=== PATIENT | male | born 1950 | race Caucasian/White ===

== ENCOUNTER 2024-07-20 10:41 | Day surgery (SDC) | payer MEDICARE ==
[2024-07-15 16:17] VITALS: BMI 23.1
--- NOTE | 2024-07-19 11:58 | P.GSHP ---
History of Present Illness H&P Date: 07/19/24 This 73-year-old gentleman diagnosed with a Edgar 7 prostate cancer, 4 of 12 cores in the left lobe of his prostate.. His PSA is elevated at 7.1. His prostate gland is 44 mL. He is to have external beam radiation therapy and comes for Space Oar injection by prior to his radiation treatment. - Constitutional Constitutional: Denies chills, Denies fever - EENT Eyes: denies blurred vision, denies pain Ears, nose, mouth and throat: Denies headache, Denies sore throat - Cardiovascular Cardiovascular: Denies chest pain, Denies shortness of breath - Respiratory Respiratory: Denies cough, Denies 7 - Gastrointestinal Gastrointestinal: Denies abdominal pain, Denies diarrhea, Denies nausea, Denies vomiting - Genitourinary (Female) Genitourinary: Denies dysuria, Denies hematuria - Genitourinary (Male) Genitourinary: Denies dysuria, Denies hematuria - Musculoskeletal Musculoskeletal: Denies myalgias - Integumentary Integumentary: Denies pruritus, Denies rash - Neurological Neurological: Denies numbness, Denies weakness - Psychiatric Psychiatric: Denies anxiety, Denies depression - Endocrine Endocrine: Denies fatigue, Denies weight change Past Medical History Past Medical History: Cancer, Hypertension Additional Past Medical History / Comment(s): prostate C-dx 2021 no radiation or chemo History of Any Multi-Drug Resistant Organisms: None Reported Past Surgical History: Tonsillectomy Additional Past Surgical History / Comment(s): martinez cyst removed, precancerous skin lesions removed, vasectomy Past Anesthesia/Blood Transfusion Reactions: No Reported Reaction Additional Past Anesthesia/Blood Transfusion Reaction / Comment(s): no hx blood transfuion Smoking Status: Never smoker - Past Family History Mother Family Medical History: Cancer Medications and Allergies Home Medications Medication Instructions Recorded Confirmed Type Aspirin 81 mg PO DAILY 03/14/15 07/15/24 History Bisoprolol-Hctz 2.5-6.25 mg [Ziac 1 each PO QAM 03/14/15 07/15/24 History 2.5-6.25] Fish Oil/Borage/Flax/Om3,6,9 1 400 mg PO DAILY 03/14/15 07/15/24 History [[place] 3-6-9 Complex Softgel] Ibuprofen [Motrin] 800 mg PO Q8HR PRN 03/14/15 07/15/24 History Allergies Allergy/AdvReac Type Severity Reaction Status Date / Time adhesive tape Allergy Rash/Hives Verified 07/15/24 16:09 Surgical - Exam - General well developed, well nourished, no distress - Eyes normal ocular movement, no icteric - ENT no hearing loss, no congestion - Neck no masses, trachea midline - Respiratory normal respiratory effort, clear to auscultation - Abdomen Abdomen: soft, non tender, no guarding, no rigid, no rebound - Integumentary no rash, no abnormal pigmentation - Neurologic no disoriented, no combative - Psychiatric oriented to time, oriented to person, oriented to place, speech is normal, memory intact Assessment and Plan Assessment: Impression: Prostate cancer, Edgar 7 (3+4) Recommendation: space oar injections prior to external beam radiation therapy.
[2024-07-20 11:55] VITALS: TEMP 97.4
[2024-07-20] MEDS: IV FLUID CONTINUATION 1,000 ML IV ONE (12:05)
[2024-07-20] MEDS: LACTATED RINGERS 1,000 ML IV SCH (12:05)
[2024-07-20] MEDS ORDERED: fentaNYL (PF) 50 MCG/ML 2 ML AMP ONE (12:33)
[2024-07-20] MEDS ORDERED: MIDAZOLAM 2 MG/2 ML VIAL ONE (12:33)
[2024-07-20] MEDS ORDERED: KETAMINE HCL IN 0.9 % NACL 50 MG/5 ML SYRINGE ONE (12:33)
[2024-07-20] MEDS ORDERED: PROPOFOL 10 MG/ML 20 ML VIAL IV ONE (12:33)
[2024-07-20] MEDS: LIDOCAINE 2% INJ 20 MG/ML SQ ONE ×2 (12:50)
--- NOTE | 2024-07-20 12:58 | P.OP ---
Date of Procedure: 07/20/24 Preoperative Diagnosis: Prostate cancer Postoperative Diagnosis: Same Procedure(s) Performed: SpaceOAR gel placement Implants: SpaceOAR gel Anesthesia: MAC Surgeon: Frank Reyes Estimated Blood Loss (ml): 5 Pathology: none sent Condition: stable Disposition: PACU Indications for Procedure: This 73-year-old gentleman diagnosed with a [place] 7 prostate cancer, 4 of 12 cores in the left lobe of his prostate.. His PSA is elevated at 7.1. His prostate gland is 44 mL. He is to have external beam radiation therapy and comes for Space Oar injection by prior to his radiation treatment. Description of Procedure: The patient was taken to the operating room and placed in the dorsolithotomy position, with his legs supported in Derick stirrups. The external genitalia was prepped and draped sterilely. The transrectal ultrasound probe was placed intrarectally. The prostate was imaged. The probe was then placed within the stabilizing stand. A spinal needle was advanced under ultrasonic guidance to the level of the urogenital diaphragm, and lidocaine was used to infiltrate the tissues as the needle was withdrawn. Next, the SpaceOAR needle was passed through the midline of the perineum, 1-2 cm anterior to the anal opening. The needle was slowly advanced under ultrasonic guidance until the needle tip was located within the fat plane between the prostate and rectum, at the level of the mid prostate gland. The needle was confirmed to be midline on the axial imaging. A small amount of normal saline was injected for hydrodissection. Next, the SpaceOAR components were mixed and loaded into the Y connector per protocol. The Y connector was then connected to the needle, and the components were injected slowly over a course of approximately 10 seconds. A total of 10 ml was injected. Significant distance was created between the prostate and rectum, as desired. It should be noted that at no point was there any concern of rectal perforation. The needle was withdrawn, as well as the transrectal ultrasound probe, and the procedure was terminated. The patient tolerated the procedure well and was taken to the recovery room in stable condition
[2024-07-20 13:05] VITALS: RESP 16
[2024-07-20 13:58] VITALS: BP 145/76; PULSE 46
== END 2024-07-20 13:59 | disposition home or self-care (01) ==
LOC: OR 10:41
PROVIDERS: ATTEND Urology

== ENCOUNTER → 2024-09-13 | Outpatient (CLI) | payer MEDICARE | END | disposition home or self-care (01) | LOC: LABWHC1 10:34 | PROVIDERS: ATTEND Radiology Radiation Oncology | DX: C61 Malignant neoplasm of prostate (principal) | CPT/HCPCS: 36415; 84153 ==